=== PATIENT | female | born 1950 | race Caucasian/White ===

== ENCOUNTER → 2016-11-21 | Outpatient (CLI) | payer BC, OTHER ==
--- NOTE | 2016-11-22 10:35 | MAM ---
History: Well woman exam. Date of exam: 11/21/2016 Services provided: Bilateral full field digital screening mammography. CAD, the images were reviewed with R2 computer aided detection. FINDINGS: Glandular tissue is scattered glandular pattern. Comparison with 2012 study. No dominant mass, architectural distortion or clustered microcalcification. IMPRESSION: Benign exam Recommendation: Routine annual mammography BIRAD CATEGORY: 2 BENIGN Electronically signed by: Emily Barreto MD 11/22/2016 10:33 AM CDT
== END | disposition home or self-care (01) ==
LOC: MAMMO 09:46
PROVIDERS: ATTEND Obstetrics & Gynecology
DX: Z12.31 Encounter for screening mammogram for malignant neoplasm of breast (principal)

== ENCOUNTER → 2017-08-14 | Outpatient (CLI) | payer MEDICARE, OTHER | END | disposition home or self-care (01) | LOC: GMAM 14:56 | PROVIDERS: ATTEND Family Medicine | DX: N39.0 Urinary tract infection, site not specified (principal) ==

== ENCOUNTER → 2017-09-19 | Outpatient (CLI) | payer MEDICARE, OTHER | LOC: GMAM 15:25 | PROVIDERS: ATTEND Family Medicine | DX: R53.1 Weakness (principal); R53.83 Other fatigue ==

== ENCOUNTER → 2017-12-20 | Outpatient (CLI) | payer MEDICARE, OTHER ==
--- NOTE | 2017-12-24 08:29 | MAM ---
EXAM DESCRIPTION: 3D Screening BILATERAL : Digital Mammography. CLINICAL HISTORY: 67 years Female ANNUAL SCREENING . No complaints. No family history breast cancer. Postmenopausal. Currently on HRT. Prior biopsy right breast. COMPARISON: 2-D digital screening bilateral study 11/21/2016. Report from prior examination also reviewed. TECHNIQUE: Bilateral CC and MLO projection full-field images, 3-D tomosynthesis digital mammographic technique. CAD not utilized. FINDINGS: The breast parenchymal density pattern is: Almost entirely fatty No skin thickening or nipple retraction right axillary lymph node. No focal, stellate mass or density, focal asymmetry , and no suspicious microcalcifications bilaterally. Stable mammograms compared to prior study, taking into account differences in mammographic technique IMPRESSION: BI-RADS CATEGORY: 2 - BENIGN FINDINGS. FOLLOW UP: Routine digital bilateral screening, one year interval from December 2017. Written communication explaining the IMPRESSION and follow-up, will be mailed to the patient and referring health care provider. According to the [employer], yearly mammograms are recommended starting at age 40 and continuing as long as a woman is in good health. Any breast change noted on a breast self-exam should be reported promptly to the patient's healthcare provider. Breast MRI is recommended for women with an approximately 20-25% or greater lifetime risk of breast cancer, including women with a strong family history of breast or ovarian cancer and women who have been treated for Hodgkin's disease. A negative mammographic report should not delay tissue diagnosis in patients with significant clinical history or physical findings. Extremely dense breast tissue limits the sensitivity of digital mammography. Electronically signed by: Phil Glover MD 12/24/2017 8:28 AM CDT
== END ==
LOC: MAMMO 10:30
PROVIDERS: ATTEND Obstetrics & Gynecology
DX: Z12.31 Encounter for screening mammogram for malignant neoplasm of breast (principal)

== ENCOUNTER → 2019-01-16 | Outpatient (CLI) | payer MEDICARE, OTHER ==
--- NOTE | 2019-01-27 13:31 | MAM ---
EXAM DESCRIPTION: 3D Screening BILATERAL : Digital Mammography. CLINICAL HISTORY: 68 years Female Screening . No complaints. No personal or family history of breast cancer. Childbirth. Postmenopausal. Currently on HRT. Prior right breast benign biopsy. Lifetime risk of developing breast cancer (Tyrer-Cuzick model)(%): 7.9. COMPARISON: Bilateral screening digital breast tomosynthesis 12/20/2017. 2-D digital screening bilateral mammography 11/21/2016. TECHNIQUE: Bilateral CC and MLO projection full-field images, digital tomosynthesis mammographic technique. Bilateral digital 2-D full-field MLO images. CAD not available for tomosynthesis or 2-D images. FINDINGS: The breast parenchymal density pattern is: Scattered areas of fibroglandular density. No skin thickening or nipple retraction. Bilateral axillary lymph nodes. Bilateral solitary microcalcifications. No new focal, stellate mass or density, focal asymmetry , and no suspicious microcalcifications bilaterally. Stable mammograms compared to prior study. Taking into account, differences in mammographic technique. IMPRESSION: Benign exam. BIRAD CATEGORY: 2 BENIGN FINDINGS. RECOMMENDATIONS: FOLLOW UP: Routine digital bilateral mammographic screening, one year interval from January 2019. Written communication explaining the IMPRESSION and follow-up, will be mailed to the patient and referring health care provider. According to the [employer], yearly mammograms are recommended starting at age 40 and continuing as long as a woman is in good health. Any breast change noted on a breast self-exam should be reported promptly to the patient's healthcare provider. Breast MRI is recommended for women with an approximately 20-25% or greater lifetime risk of breast cancer, including women with a strong family history of breast or ovarian cancer and women who have been treated for Hodgkin's disease. A negative mammographic report should not delay tissue diagnosis in patients with significant clinical history or physical findings. Extremely dense breast tissue limits the sensitivity of digital mammography. Electronically signed by: Phil Glover MD 01/27/2019 1:28 PM CDT
== END ==
LOC: MAMMO 13:00
PROVIDERS: ATTEND Family Medicine
DX: Z12.31 Encounter for screening mammogram for malignant neoplasm of breast (principal)

== ENCOUNTER → 2019-12-22 | Outpatient (CLI) | payer MEDICARE, OTHER ==
--- NOTE | 2019-12-23 09:15 | US ---
EXAM DESCRIPTION: Soft Tissue,Head/Neck: ULTRASOUND. CLINICAL HISTORY: 69 years Female ACUTE LYMPHADENITIS COMPARISON: None Available. TECHNIQUE: Transcutaneous scanning: Kelly-scale and Doppler modes. FINDINGS: Scanning of the right clavicular area overlying palpable object. Complex hypoechoic object in the fatty layer but displacing muscle fibers. This measures 1.7 x 0.6 cm. Wider than tall orientation with possible calcification. Posterior acoustic enhancement and shadowing. Nonvascular. Also scanning region of subcutaneous swelling at the base of the right neck. Normal appearance of the subcutaneous adipose tissue and fascia. No dominant solid mass, no distinct cyst, no fluid collection, and no calcification. IMPRESSION: Reactive lymph node corresponding to palpable object in the right clavicular region. No focal ultrasound abnormality at the base of the right neck. Electronically signed by: Phil Glover MD 12/23/2019 9:13 AM CDT
== END ==
LOC: US 15:19
PROVIDERS: ATTEND Family Medicine
DX: L04.0 Acute lymphadenitis of face, head and neck (principal)

== ENCOUNTER → 2019-12-26 | Outpatient (CLI) | payer MEDICARE, OTHER ==
--- NOTE | 2019-12-26 15:49 | CT ---
EXAM DESCRIPTION: Chest w/Contrast CLINICAL HISTORY: 69 years Female, LYMPHADENOPATHY COMPARISON: None. TECHNIQUE: Transaxial images were obtained with intravenous contrast media. Sagittal and coronal reconstruction was performed.This exam was performed according to our departmental dose-optimization program, which includes automated exposure control, adjustment of the mA and/or kV according to patient size and/or use of iterative reconstruction technique. FINDINGS: The thyroid is normal in appearance. No pathologic axillary adenopathy is observed. Small mediastinal nodes are observed. No hilar adenopathy is seen. No pleural fluid is seen. Hepatic steatosis is noted. A small hiatus hernia is seen. No adrenal masses are detected. No pulmonary nodule or mass is detected. A tiny pleural-based right middle lobe nodule is observed measuring 3.6 mm in diameter. Degenerative changes are observed in the lumbar spine. Small lingular nodule is observed measuring 3.8 mm in diameter. IMPRESSION: 1. Small mediastinal nodes are observed her not felt to be pathologic by size criteria. 2. A nodule is observed in the lingula and right middle lobe measuring 3.6 and 3.8 mm in diameter.2017 Fleischner Society Recommendations for Multiple Solid Lung Nodules Follow-Up base on size (average of long- and short-axis diameters). Use most suspicious nodule for followup. Nodule Size <6 mm Low-Risk Patient: No routine follow-up Nodule Size <6 mm High-Risk Patient: Optional CT at 12 months Electronically signed by: Fortino Benito MD 12/26/2019 3:47 PM CDT
== END ==
LOC: CT 09:30
PROVIDERS: ATTEND Family Medicine
DX: R59.9 Enlarged lymph nodes, unspecified (principal); R91.1 Solitary pulmonary nodule

== ENCOUNTER → 2020-01-27 | Outpatient (CLI) | payer MEDICARE, OTHER ==
--- NOTE | 2020-01-27 11:04 | CT ---
EXAM DESCRIPTION: Chest w/Contrast CLINICAL HISTORY: 69 years Female, LYMPHADENOPATHY RIGHT SUPRA CLAVICULAR REGION COMPARISON: CT chest 12/26/2019. TECHNIQUE: CT images through the chest with IV contrast. Multiplanar reformations provided. This exam was performed according to our departmental dose-optimization program, which includes automated exposure control, adjustment of the mA and/or kV according to patient size and/or use of iterative reconstruction technique. CT CHEST FINDINGS: Heart and mediastinum: Normal heart size. No pericardial effusion. Small hiatal hernia. Mild atherosclerosis. Mediastinal lymph nodes measure up to 8 mm at the AP window compared to 9 mm previously. Right hilar lymph node measures 6 mm short axis. Left hilar lymph nodes measure no greater than 5 mm short axis. Lymph node in the anterior superior mediastinum just deep to the manubrium measures 11 mm short axis compared to 10 mm previously. No right subclavicular lymph nodes. Thyroid Gland: Normal. Lungs: Unchanged 3 mm partial groundglass round nodule in the lingula on image 88, series 4. Stable 6 mm oval solid pulmonary nodule in the left lower lobe on image 83, series 4. Airways: Normal. Pleura: Normal. Musculoskeletal and Soft Tissues: No acute fracture or aggressive appearing osseous lesion. Right axillary lymph nodes measure no greater than 7 mm short axis. Left axillary lymph nodes measure no greater than 6 mm short axis. These are unchanged from 12/26/2019. Subphrenic Structures: Relative hypoattenuation of the liver parenchyma. IMPRESSION: 1. No acute abnormality of the chest. 2. Nonspecific mediastinal or hilar adenopathy as above and most of which are not pathologically enlarged by size criteria, with no significant interval change from 12/26/2019. 3. Stable pulmonary nodules. Multiple Solid lung nodules 6-8 mm: Follow up management based on most suspicious nodule. In a low-risk patient, recommend a non-contrast Chest CT at 3-6 months, then consider another non-contrast Chest CT at 18-24 months. In a high-risk patient, recommend a non-contrast Chest CT at 3-6 months, then another non-contrast Chest CT at 18-24 months. These guidelines do not apply to patients younger than 35 years, immunocompromised patients, and patients with cancer. F/u in patients with significant comorbidities as clinically warranted. For lung cancer screening, adhere to Lung-RADS guidelines. Reference: Radiology. 2017 Feb; 284(1):228-24 4. Fatty liver. Electronically signed by: José Herman MD 01/27/2020 10:23 AM CDT
== END ==
LOC: CT 08:08
PROVIDERS: ATTEND Family Medicine
DX: R59.9 Enlarged lymph nodes, unspecified (principal); R91.8 Other nonspecific abnormal finding of lung field

== ENCOUNTER → 2020-03-02 | Outpatient (CLI) | payer MEDICARE, OTHER ==
--- NOTE | 2020-03-03 15:25 | MAM ---
EXAM DESCRIPTION: 3D Screening BILATERAL : Digital Mammography. CLINICAL HISTORY: 69 years Female SCREEN . No complaints. No family history of breast cancer. Menarche age 17. Childbirth age 22. Menopause age unknown. Currently on HRT. Benign right breast biopsy/cyst aspiration. Lifetime risk of developing breast cancer (Tyrer-Cuzick model)(%): 7.6. COMPARISON: Bilateral screening digital breast tomosynthesis January 2019 and December 2017. TECHNIQUE: Bilateral CC and MLO projection full-field images, digital tomosynthesis mammographic technique. Bilateral digital 2-D full-field MLO images. CAD available for 2-D images. FINDINGS: The breast parenchymal density pattern is: Scattered areas of fibroglandular density. No skin thickening or nipple retraction. Solitary microcalcifications. Posterior skin mole markers right breast. Right axillary nodes. Solitary microcalcifications. Group of benign type microcalcifications upper outer quadrant posterior third right breast. No new focal, stellate mass or density, focal asymmetry , and no suspicious microcalcifications bilaterally. Stable mammograms compared to prior study. IMPRESSION: Benign exam. BIRAD CATEGORY: 2 BENIGN FINDINGS. RECOMMENDATIONS: FOLLOW UP: Routine digital bilateral mammographic screening, one year interval from February 2020. Written communication explaining the IMPRESSION and follow-up, will be mailed to the patient and referring health care provider. According to the [employer], yearly mammograms are recommended starting at age 40 and continuing as long as a woman is in good health. Any breast change noted on a breast self-exam should be reported promptly to the patient's healthcare provider. Breast MRI is recommended for women with an approximately 20-25% or greater lifetime risk of breast cancer, including women with a strong family history of breast or ovarian cancer and women who have been treated for Hodgkin's disease. A negative mammographic report should not delay tissue diagnosis in patients with significant clinical history or physical findings. Extremely dense breast tissue limits the sensitivity of digital mammography. Electronically signed by: Phil Glover MD 03/03/2020 3:23 PM CDT
== END ==
LOC: MAMMO 11:10
PROVIDERS: ATTEND Obstetrics & Gynecology
DX: Z12.31 Encounter for screening mammogram for malignant neoplasm of breast (principal)